=== PATIENT | female | born 1980 | race Asian ===

== ENCOUNTER → 2023-10-14 | Outpatient (CLI) | payer MEDICAID ==
[2023-10-14 11:53] LABS: Basophils # (auto) 0.1 10 ^3/uL (0-0.2); Basophils % (auto) 0.9 % (0.0-2.0); Eosinophils # (auto) 0 10 ^3/uL (0-0.8); Eosinophils % (auto) 0.4 % (0.0-7.0); Hematocrit 40.8 % (36.0-46.0); Hemoglobin 14.2 g/dL (12.2-16.2); Lymphocytes # (auto) 1.5 10 ^3/uL (0.4-5.4); Lymphocytes % (auto) 22.4 % (10.0-50.0); Mean Corpuscular Hemoglobin 31.1 pg (28.0-32.0); Mean Corpuscular Hgb Conc. 34.8 g/dL (32.0-36.0); Mean Corpuscular Volume 89.6 fL (80.0-100.0); Monocytes # (auto) 0.5 10 ^3/uL (0-1.3); Monocytes % (auto) 7.9 % (0.0-12.0); Neutrophils # (auto) 4.5 10 ^3/uL (1.6-8.6); Neutrophils % (auto) 68.4 % (37.0-80.0); Red Blood Cells 4.55 10^6/uL (4.0-5.20); White Blood Cell 6.6 10^3/uL (4.4-10.8)
[2023-10-14 12:01] LABS: Urine Bacteria FEW /hpf (None Seen); Urine Blood Negative /uL (Negative); Urine Clarity Clear (Clear); Urine Color Colorless (Yellow); Urine Protein, UAD Negative (Negative); Urine Specific Gravity 1.008 (1.001-1.035); Urine Urobilinogen Normal (Negative); Urine WBC <1 /hpf (0 - 5)
[2023-10-14 12:25] LABS: Amphetamine Screen, Urine Neg (NEGATIVE); Barbiturate Scree,Urine Neg (NEGATIVE); Benzodiazephine Screen, Urine Neg (NEGATIVE); Cannabinoid Screen, Urine Neg (NEGATIVE); Cocaine Screen, Urine Neg (NEGATIVE); Opiate Scree,Urine Neg (NEGATIVE); Phencyclidine Screen, Urine Neg (NEGATIVE)
[2023-10-14 12:31] LABS: Alanine Aminotransferase 13 U/L (7-40); Albumin 4.7 g/dL (3.2-4.8); Alkaline Phosphatase 38 U/L (46-116); Anion Gap 5 (5-15); Aspartate Aminotransferase 12 U/L (13-40); BUN/Creatinine Ratio 8.5 (10.0-20.0); Bilirubin, Total 0.6 mg/dL (0.2-1.0); Blood Urea Nitrogen 6 mg/dL (9-23); Calcium 9.5 mg/dL (8.5-10.1); Carbon Dioxide 26 mmol/L (20-30); Chloride 105 mmol/L (98-107); Cholesterol 131 mg/dL (< 200); Glucose 92 mg/dL (74-106); HDL Cholesterol 44 mg/dL (40-59); LDL Cholesterol 87 mg/dL (< 100); Potassium 3.9 mmol/L (3.5-5.1); Sodium 136 mmol/L (136-145); Thyroid Stimulating Hormone 1.65 uIU/mL (0.55-4.78); Total Protein 7.4 g/dL (5.7-8.2); Triglycerides 76 mg/dL (< 150)
[2023-10-14 12:39] LABS: Beta HCG, Quantitative 7182.7 mIU/mL (1.5-4.2)
[2023-10-15 07:07] LABS: RPR Non Reactive (Non Reactive)
[2023-10-15 08:06] LABS: Thyroxine (T4) 9.5 ug/dL (4.5-12.0)
[2023-10-15 10:07] LABS: Varicella Zoster IgG Antibody 957 index (Immune >165)
[2023-10-15 22:07] LABS: Chlamydia Trachomatis, NAA Negative (Negative); Neisseria gonorrhoeae, NAA Negative (Negative)
[2023-10-16 11:07] LABS: QuantiFERON-TB Gold Plus Negative (Negative)
== END | disposition home or self-care (01) ==
LOC: LAB 11:20
PROVIDERS: ATTEND Obstetrics & Gynecology
DX: Z36.0 Encounter for antenatal screening for chromosomal anomalies (principal); Z31.430 Encounter of female for testing for genetic disease carrier status for procreative management; O23.30 Infections of other parts of urinary tract in pregnancy, unspecified trimester; N39.0 Urinary tract infection, site not specified; Z3A.00 Weeks of gestation of pregnancy not specified
CPT/HCPCS: 36415; 80053; 80061; 80307; 81001; 83036; 84436; 84443; 84702; 85025; 86592; 86703; 86762; 86787; 86850; 86900; 86901; 87086; 87340; 87902

== ENCOUNTER 2024-06-04 04:51 | Inpatient (IN) | payer MEDICAID ==
[~2024-06-04] VITALS: Ht 172.7 cm; Wt 93.4 kg
[2024-06-04] MEDS ORDERED: PHISODERM TOP SOLN 240ML BTL TOP PRN (05:30)
[2024-06-04] MEDS ORDERED: TERBUTALINE SULFATE 1 MG/ML 1ML VIAL SC PRN (05:30)
[2024-06-04] MEDS ORDERED: LIDOCAINE 2%HCL (LOCAL ANESTH.) INJ 20ML MDV IJ PRN (05:30)
[2024-06-04] MEDS ORDERED: DERMOPLAST 60ML BOTTLE TOP PRN (05:30)
[2024-06-04] MEDS ORDERED: WITCH HAZEL-GLYCERIN PAD TOP PRN (05:30)
[2024-06-04] MEDS ORDERED: ONDANSETRON HCL 4 MG/2 ML VIAL IV PRN (05:30)
[2024-06-04 06:19] LABS: Urine Bacteria None Seen /hpf (None Seen)
[2024-06-04 06:26] LABS: Basophils # (auto) 0 10 ^3/uL (0-0.2); Basophils % (auto) 0.4 % (0.0-2.0); Eosinophils # (auto) 0.1 10 ^3/uL (0-0.8); Eosinophils % (auto) 0.9 % (0.0-7.0); Hematocrit 36.7 % (36.0-46.0); Hemoglobin 12.7 g/dL (12.2-16.2); Lymphocytes # (auto) 1.7 10 ^3/uL (0.4-5.4); Mean Corpuscular Hemoglobin 31.9 pg (28.0-32.0); Mean Corpuscular Hgb Conc. 34.5 g/dL (32.0-36.0); Mean Corpuscular Volume 92.5 fL (80.0-100.0); Monocytes # (auto) 0.6 10 ^3/uL (0-1.3); Monocytes % (auto) 6.8 % (0.0-12.0); Neutrophils # (auto) 6.9 10 ^3/uL (1.6-8.6); Neutrophils % (auto) 73.9 % (37.0-80.0); Nucleated Red Blood Cells % 0.1 %; Platelet Count (auto) 216 10^3/uL (140-450); Red Blood Cells 3.97 10^6/uL (4.0-5.20); Red Cell Distribution Width 14.4 % (11.8-14.3); White Blood Cell 9.4 10^3/uL (4.4-10.8)
[2024-06-04 06:33] LABS: Urine Blood 2+ /uL (Negative); Urine Clarity Turbid (Clear); Urine Color Colorless (Yellow); Urine Protein, UAD 1+ (Negative); Urine Specific Gravity 1.016 (1.001-1.035); Urine Squamous Epithelial Cell FEW /hpf (<5); Urine Urobilinogen Normal (Negative); Urine WBC 7 /HPF (0-5); Urine pH 6.5 (5.0-9.0)
[2024-06-04 06:42] LABS: INR 0.91 (0.9-1.15); Partial Thromboplastin Time 27.1 SEC (24.5-34.5); Prothrombin Time 9.7 sec (9.3-11.8)
[2024-06-04 06:42] LABS: Amphetamine Screen, Urine Neg (NEGATIVE); Barbiturate Scree,Urine Neg (NEGATIVE); Benzodiazephine Screen, Urine Neg (NEGATIVE); Cocaine Screen, Urine Neg (NEGATIVE); Opiate Scree,Urine Neg (NEGATIVE); Phencyclidine Screen, Urine Neg (NEGATIVE)
[2024-06-04 06:44] LABS: Cannabinoid Screen, Urine Neg (NEGATIVE)
[2024-06-04 06:45] LABS: Alanine Aminotransferase 11 U/L (7-40); Albumin 3.8 g/dL (3.2-4.8); Alkaline Phosphatase 94 U/L (46-116); Anion Gap 11 (5-15); Aspartate Aminotransferase 14 U/L (13-40); BUN/Creatinine Ratio 10.9 (10.0-20.0); Bilirubin, Total 0.4 mg/dL (0.2-1.0); Calcium 9.2 mg/dL (8.7-10.4); Chloride 107 mmol/L (98-107); Glucose 80 mg/dL (74-106); Potassium 3.6 mmol/L (3.5-5.1); Sodium 137 mmol/L (136-145)
[2024-06-04 06:53] LABS: Blood Urea Nitrogen 7 mg/dL (9-23); Carbon Dioxide 19 mmol/L (20-31)
[2024-06-04] MEDS: LACTATED RINGER'S 1,000 ML IV SCH (07:17)
[2024-06-04] MEDS: ROPIVACAINE HCL 200 ML ONE (07:18)
[2024-06-04] MEDS: ePHEDrine SULFATE 50 MG/ML AMP ONE (07:42)
--- NOTE | 2024-06-04 07:43 | DVHHP2 ---
OB CC & HPI Date Date of Admission: Jun 04, 2024 Patient Identification: : 3 Para: 1 EGA: 38+ Chief Complaints: Reason for admission: rupture of membranes History of Present Complaints 44y with term IUP, presented with grossly PROM clear fluid since 0400 am this morning. Mild to moderate contractions. No bleeding. GBS neg Desires epidural. Past Medical History Cardiac: No pertinent Hx Pulmonary: No pertinent Hx Central Nervous System: No pertinent Hx GI: No pertinent Hx Hemotology/Oncology: No pertinent Hx Hepatobiliary: No pertinent Hx Psychiatric: No pertinent Hx Musculoskeletal: No pertinent Hx Rheumotologic: No pertinent Hx Infectious Disease: No peritnent Hx ENT: No pertinent Hx Renal/: No pertinent Hx Endocrine: No pertinent Hx Dermatology: No pertinent Hx Past Surgical History: No pertinent Hx OB History OB History Care: Good Care Ultrasounds: Normal mid trimester US Obstetrical Complications: None Medical Complications: None Allergies: Coded Allergies: NO KNOWN ALLERGIES (Unverified , 06/04/24) Current Medications Current Medications Medications (Trade) Dose Ordered Sig/Abimael Route PRN Reason Start Time Stop Time Status Last Admin Lactated Ringer's 1,000 ml @ 125 mls/hr Q8H IV 06/04/24 05:30 06/04/24 07:17 Witch Awilda (Tucks) 1 pad PRN PRN TOP PERINEAL AREA DISCOMFORT 06/04/24 05:30 Sodium Lauryl Sulfate (Phisoderm) 240 ml PRN PRN TOP PERINEAL AREA DISCOMFORT 06/04/24 05:30 Benzocaine (Dermoplast) 1 applic PRN PRN TOP PERINEAL AREA DISCOMFORT 06/04/24 05:30 Lidocaine HCl (Xylocaine) 20 ml ONCE PRN IJ PERINEAL AREA DISCOMFORT 06/04/24 05:30 Ondansetron HCl (Zofran) 4 mg Q6HPRN PRN IV NAUSEA / VOMITING 06/04/24 05:30 Terbutaline Sulfate (Brethine Inj) 0.25 mg ONCE PRN SC Uterine tachysystole 06/04/24 05:30 Family & Social History Family/Social History Blood Type: O+ Rubella: immune RPR/VDRL: Negative GBS Status: Negative HBsAG: Negative Review of Systems Constitutional: No symptom reported Ears, Nose, & Throat: No symptom reported Eyes: No symptom reported Pulmonary/Respiratory: No symptom reported Cardiovascular: No symptom reported Gastrointestinal: No symptom reported Genitourinary: No symptom reported Musculoskeletal: No symptom reported Skin: No symptom reported Psychiatric: No symptom reported Endocrine: No symptom reported Hemotologic/Lymphatic: No symptom reported OB Admission Exam Physical Exam HEENT: NCAT Heart: Rhythm Normal Lungs: Clear Abdomen: Gravid Extremities: Normal Reflexes: Normal Pelvic Exam: RN exam: 4/50%/-3 VTX Heart Rate: 130's Accelerations: Accelerations Present Decelerations: No Decelerations Short Term Variability: Present Custodial Variability: Average (6-25) Contractions on Admission: None Intensity: Moderate OB Plan Plan Admitting Diagnosis: Term IUP, PROM, Early LABOR AMA GBS neg Category 1 FHR Plan: Expectant Management Other Plan: Admit for labor and delivery Epidural requested Anticipated Pitocin augmentation, if needed. Visit Coding OBGYN Date of Service: Jun 04, 2024 Billing Provider: JEANNIE MCKEON DO SENIOR CUSTOMER SERVICE REPRESENTATIVE Common Visit Codes: [id number] INP/OBS CARE (HIGH) JEANNIE MCKEON DO Jun 04, 2024 07:43
--- NOTE | 2024-06-04 08:46 | DVHPN2 ---
Chief Complaints Patient reports: No new complaints Nursing reports: No new complaints Objective Medications Current Medications Medications (Trade) Dose Ordered Sig/Abimael Route PRN Reason Start Time Stop Time Status Last Admin Benzocaine (Dermoplast) 1 applic PRN PRN TOP PERINEAL AREA DISCOMFORT 06/04/24 05:30 Lactated Ringer's 1,000 ml @ 125 mls/hr Q8H IV 06/04/24 05:30 06/04/24 07:17 Lidocaine HCl (Xylocaine) 20 ml ONCE PRN IJ PERINEAL AREA DISCOMFORT 06/04/24 05:30 Ondansetron HCl (Zofran) 4 mg Q6HPRN PRN IV NAUSEA / VOMITING 06/04/24 05:30 Oxytocin 1,000 ml @ 6 ml/hr Q24H IV 06/04/24 07:45 Sodium Lauryl Sulfate (Phisoderm) 240 ml PRN PRN TOP PERINEAL AREA DISCOMFORT 06/04/24 05:30 Terbutaline Sulfate (Brethine Inj) 0.25 mg ONCE PRN SC Uterine tachysystole 06/04/24 05:30 Witch Awilda (Tucks) 1 pad PRN PRN TOP PERINEAL AREA DISCOMFORT 06/04/24 05:30 General: Normal Lungs: Normal Cardiovascular: Normal Abdominal: Soft Extremities: Normal Others VE-5CM/80/-2 Studies Laboratory Tests 06/04/24 06:08 Test 06/04/24 06:08 Range/Units Serum Glucose 80 74-106 mg/dL Ass/Plan Assessment 38 WKS W/SROM AMA Plan CONT WITH PITOCIN REC EPIDURAL Visit Coding OBGYN Date of Service: Jun 04, 2024 Billing Provider: JOHN PAUL SNYDER DO PREPARATOR Common Visit Codes: 23005-EJL/OBS SAME DATE (MOD) PREPARATOR Procedure Codes: 13162-93- NON-STRESS TEST JOHN PAUL SNYDER DO Jun 04, 2024 08:46
--- NOTE | 2024-06-04 12:53 | DVHPN2 ---
Chief Complaints Patient reports: No new complaints Nursing reports: No new complaints Objective Medications Current Medications Medications (Trade) Dose Ordered Sig/Abimael Route PRN Reason Start Time Stop Time Status Last Admin Benzocaine (Dermoplast) 1 applic PRN PRN TOP PERINEAL AREA DISCOMFORT 06/04/24 05:30 Lactated Ringer's 1,000 ml @ 125 mls/hr Q8H IV 06/04/24 05:30 06/04/24 07:17 Lidocaine HCl (Xylocaine) 20 ml ONCE PRN IJ PERINEAL AREA DISCOMFORT 06/04/24 05:30 Ondansetron HCl (Zofran) 4 mg Q6HPRN PRN IV NAUSEA / VOMITING 06/04/24 05:30 Oxytocin 1,000 ml @ 6 ml/hr Q24H IV 06/04/24 07:45 Sodium Lauryl Sulfate (Phisoderm) 240 ml PRN PRN TOP PERINEAL AREA DISCOMFORT 06/04/24 05:30 Terbutaline Sulfate (Brethine Inj) 0.25 mg ONCE PRN SC Uterine tachysystole 06/04/24 05:30 Witch Awilda (Tucks) 1 pad PRN PRN TOP PERINEAL AREA DISCOMFORT 06/04/24 05:30 General: Normal Lungs: Normal Cardiovascular: Normal Abdominal: Soft Extremities: Normal Others ve-10cm/100/+++++2 Studies Laboratory Tests 06/04/24 06:08 Test 06/04/24 06:08 Range/Units Serum Glucose 80 74-106 mg/dL Ass/Plan Assessment 38 WKS W/SROM AMA Plan trial of pushing Visit Coding OBGYN Date of Service: Jun 04, 2024 Billing Provider: JOHN PAUL SNYDER DO ANIMAL HERDER Common Visit Codes: 40866-YLO/OBS SAME DATE (HIGH) JOHN PAUL SNYDER DO Jun 04, 2024 12:53
[2024-06-04] MEDS ORDERED: ONDANSETRON ODT 4 MG TAB PO PRN (14:15)
--- NOTE | 2024-06-04 14:38 | LDN2 ---
Labor and Delivery Note Date 06/04/24 Age 44 3 Para 2 AB 1 EDC 2-20 EGA 38wks Diagnosis srom Vaginal Delivery: VTX Vacuum Assisted: Yes Placenta: Spontaneous Sex: Female Apgars 8-9 Nuchal Cord Transected: Yes Amniotic Fluid: Thick Anesthesia epidural Episiotomy: Yes Extension: Yes (midline epis with 2nd deg perineall lac) Repaired with 2-0 chromic EBL 300ml Labs Laboratory Tests 10/14/23 11:34: Hepatitis B Surface Antigen Negative, HIV (1&2) Antibody Negative, Rubella Antibody Positive Blood Bank 06/04/24 06:08: Blood Type O POSITIVE Complications none Conditions stABLE Full Roll Inspector SUMO Comments/Significant Med Alirio SPEC EXAM NO CXAL LAC.PT HAD NO PUSHING EFFORT AND THICK MEC WAS NOTED . PT WAS GIVEN EPIS WITH VACCUM TO ASSIST W/DEL. SINCE THICK MEC AND DECL WAS NOTED. PRIOR TO DOING SO PERMISSION WAS OBTAINED,.CORD PH WAS 7,24 Visit Coding OBGYN Date of Service: Jun 04, 2024 Billing Provider: JOHN PAUL SNYDER DO NETWORK CONTROLLER Common Visit Codes: 60838-OEL/OBS SAME DATE (HIGH) NETWORK CONTROLLER Procedure Codes: 10305-GAH DEL INCLUDING JOHN PAUL SNYDER DO Jun 04, 2024 14:38
[2024-06-04] MEDS: IBUPROFEN 600 MG TAB PO PRN (15:08)
[2024-06-04] MEDS: ceFAZolin 2 GM/D5W50ml 50 ML IV ONE (15:10)
[2024-06-04] MEDS: LACT. RINGERS/OXYTOCIN 20UNITS 1,000 ML IV SCH (15:25)
[2024-06-04] MEDS: LACT. RINGERS/OXYTOCIN 20UNITS 500 ML IV ONE ×2 (15:25)
[2024-06-04] MEDS: METHYLERGONOVINE MALEATE 0.2 MG/ML AMP IM ONE (17:03)
[2024-06-04 19:15] VITALS: BP 134/63; PULSE 98; RESP 16; TEMP 97.9; O2SAT 97
[2024-06-04] MEDS: ACETAMINOPHEN 325 MG TAB PO PRN (19:51)
[2024-06-04] MEDS: ceFAZolin 1GM/50ML 50 ML IV SCH (22:28)
[2024-06-04] MEDS: DOCUSATE SOD 100 MG CAP PO SCH (22:28)
[2024-06-04 22:45] VITALS: BP 113/57; PULSE 93; RESP 17; TEMP 98.8; O2SAT 96
[2024-06-05 02:35] VITALS: BP 96/50; PULSE 96; RESP 16; TEMP 98.6; O2SAT 96
--- NOTE | 2024-06-05 06:15 | DVHPN2 ---
Progress Note Date Seen: Jun 05, 2024 Subjective S: Lochia minimal Tolerating regular diet well. Ambulating and voiding well w/o feeling lightheaded or dizzy. Passing flatus but no BM yet. Breast feeding. Contraceptive plan: Male Condom Desires and requests to be discharged home today vital signs Vital Sign Date Time Temp Pulse Resp B/P (MAP) Pulse Ox O2 Delivery O2 Flow Rate FiO2 06/05/24 02:35 98.6 96 16 96/50 (65) 96 98.6 06/04/24 19:15 Room Air Total Intake and Output 06/04/24 06/04/24 06/05/24 15:00 23:00 07:00 Intake Total 300 ml Output Total 1450 ml Balance -1150 ml medications Current Medications Medications Dose Ordered Sig/Abimael Route Start Time Stop Time Status Last Admin Dose Admin Lactated Ringer's 1,000 ml @ 125 mls/hr Q8H IV 06/04/24 05:30 06/04/24 07:17 125 MLS/HR Witch Awilda 1 pad PRN PRN TOP 06/04/24 05:30 Sodium Lauryl Sulfate 240 ml PRN PRN TOP 06/04/24 05:30 Benzocaine 1 applic PRN PRN TOP 06/04/24 05:30 Lidocaine HCl 20 ml ONCE PRN IJ 06/04/24 05:30 Ondansetron HCl 4 mg Q6HPRN PRN IV 06/04/24 05:30 Terbutaline Sulfate 0.25 mg ONCE PRN SC 06/04/24 05:30 Oxytocin 1,000 ml @ 6 ml/hr Q24H IV 06/04/24 07:45 06/04/24 15:25 6 ML/HR Ibuprofen 600 mg Q6HP PRN PO 06/04/24 14:15 06/05/24 02:55 600 MG Acetaminophen 650 mg Q4HP PRN PO 06/04/24 14:15 06/04/24 19:51 650 MG Ondansetron HCl 4 mg Q4HPRN PRN PO 06/04/24 14:15 Docusate Sodium 200 mg HS PO 06/04/24 22:00 06/04/24 22:28 200 MG Cefazolin Sodium 50 ml @ 100 mls/hr Q8H IV 06/04/24 22:30 06/05/24 14:59 06/04/24 22:28 100 MLS/HR laboratory and microbiology Laboratory Tests 06/04/24 06:08 Test 06/04/24 06:08 Range/Units Serum Glucose 80 74-106 mg/dL Objective O: A&O x3 NAD. Afebrile, VSS Chest: heart and lung sounds normal. Breasts: Nipples intact w/o cracks or soreness Abdomen: normal BS, soft, non-tender, no rebound or guarding, fundus firm @ U- 1, lochia minimal Perineum:- no edema, or erythema, Incision & laceration site with sutures intact, edges in good approximation. Extremities: no edema or tenderness Lochia - minimal Assessment/Plan 44yo now ppd#2_ s/p VAVD doing well. Blood Type: O Rh: Positive Breast feeding and Formula feeding Rubella: Immune Pain control with oral medications Bowel regimen: Increase fluid intake and fiber in diet, Laxative PRN Discharge plan: May discharge home later today if condition remains stable Plan discussed with: Patient ROXANA GRANT CNM Jun 05, 2024 06:15
--- NOTE | 2024-06-05 06:22 | DVHDS2 ---
Obstetrics Discharge Summary Obstetrics Discharge Summary Date of Admission: Jun 04, 2024 Date of Discharge: Jun 05, 2024 Intrapartum Procedures: Vacuum Extraction Procedures: Antibiotics, Hct/date: (36.7% on 06/04/24), Hgb/date: (12.3g/dL on 06/04/24) Operative Complicat: None Discharge Diagnosis: Term -Delivered Discharge Information: Activity (Unrestricted. Advance as tolerated. No heavy lifting, pushing or straining. Pelvic rest x 6weeks), Diet ( Routine regular diet rich in fiber, protein, iron and vitamin C with adequate fluid intake.), Medications (Ibuprofen 600mg every 6 hours as needed for pain. Continue Vitamin ), Instructions ( self care instructions given. emergency signs and symptoms including pre-eclampsia precautions and signs of PPD reviewed with patient. Follow up with OB Provider in 1 week), Discharge to (Home) ROXANA GRANT CNM Jun 05, 2024 06:22
[2024-06-05 07:30] VITALS: BP 103/62; PULSE 98; RESP 17; TEMP 98.1; O2SAT 97
[2024-06-05 11:17] VITALS: BP 118/70; PULSE 68; RESP 16; TEMP 98; O2SAT 96
[2024-06-06 08:06] LABS: RPR Non Reactive (Non Reactive)
== END 2024-06-05 14:55 | disposition home or self-care (01) | DRG 560 ==
LOC: LDRP 04:51 → UNDOADMOB 04:51 → LDRP 05:14 → INTOOBSV 05:14 → OBSVTOIN 05:14
PROVIDERS: ADMIT Obstetrics & Gynecology; ATTEND Obstetrics & Gynecology
PROC: 10D07Z6 Extraction of Products of Conception, Vacuum, Via Natural or Artificial Opening (ICD-10-PCS; principal; 2024-06-04)
PROC: 0W8NXZZ Division of Female Perineum, External Approach (ICD-10-PCS; 2024-06-04)
PROC: 0KQM0ZZ Repair Perineum Muscle, Open Approach (ICD-10-PCS; 2024-06-04)
PROC: 3E0R3BZ Introduction of Anesthetic Agent into Spinal Canal, Percutaneous Approach (ICD-10-PCS; 2024-06-04)
PROC: 00HU33Z Insertion of Infusion Device into Spinal Canal, Percutaneous Approach (ICD-10-PCS; 2024-06-04)
DX: O70.1 Second degree perineal laceration during delivery (principal); Z37.0 Single live birth; Z3A.38 38 weeks gestation of pregnancy
CPT/HCPCS: 36415; 59025; 59409; 62282; 80053; 80307; 81001; 85025; 85610; 85730; 86592; 86780; 86803; 86850; 86900; 86901; 94760; 96360; 96361; 96365; 96366; 96374; 96375; G0378; J2590